=== PATIENT | male | born 1955 | race Caucasian/White ===

== ENCOUNTER → 2021-03-13 | Outpatient (CLI) | payer OTHER | LOC: RAD 07:45 | PROVIDERS: ATTEND Preventive Medicine Occupational Medicine | DX: M25.78 Osteophyte, vertebrae (principal); M48.061 Spinal stenosis, lumbar region without neurogenic claudication; M47.816 Spondylosis without myelopathy or radiculopathy, lumbar region; M51.26 Other intervertebral disc displacement, lumbar region; M89.38 Hypertrophy of bone, other site; M51.15 Intervertebral disc disorders with radiculopathy, thoracolumbar region; I70.0 Atherosclerosis of aorta ==